=== PATIENT | female | born 1970 | race Two or more races ===

== ENCOUNTER 2019-05-19 10:34 | Emergency (ER) | payer OTHER ==
[~2019-05-19] VITALS: Ht 160 cm; Wt 63.5 kg
[2019-05-19 10:50] VITALS: BP 133/82
[2019-05-19] MEDS ORDERED: LIDOCAINE 1% HCL (LOCAL ANESTH.) INJ 20ML MDV IJ ONE (12:00)
[2019-05-19] MEDS ORDERED: KETOROLAC TROMETH 60MG/2ML VIAL IM ONE (12:30)
== END 2019-05-19 12:47 | disposition home or self-care (01) ==
LOC: ER 10:34
DX: N75.1 Abscess of Bartholin's gland (principal)
CPT/HCPCS: 56420; 96372; 99284; J1885; J2001